=== PATIENT | female | born 1940 | race Caucasian/White ===

== ENCOUNTER → 2022-12-03 | Outpatient (CLI) | payer OTHER ==
[~2022-12-03] MED LIST: LEVSOD100 PO; LISI5 PO; LOSA50 PO; METR59TL; SIMV10 PO; SIMV5 PO
== END | disposition home or self-care (01) ==
LOC: PLD 15:07 → LAB 15:07 → LAB SHORT 15:07
DX: D48.5 Neoplasm of uncertain behavior of skin (principal)
CPT/HCPCS: 88305

== ENCOUNTER → 2023-05-20 | Outpatient (CLI) | payer OTHER | END | disposition home or self-care (01) | LOC: LAB SHORT 11:57 → PLD 11:57 | DX: L82.0 Inflamed seborrheic keratosis (principal) | CPT/HCPCS: 88305 ==